=== PATIENT | female | born 1985 | race Two or more races ===

== ENCOUNTER 2018-10-02 14:01 | Emergency (ER) | payer SELFPAY ==
[~2018-10-02] VITALS: Ht 152.4 cm; Wt 56.7 kg
[2018-10-02 14:10] VITALS: BP 125/81
[2018-10-02] MEDS ORDERED: ACETAMINOPHEN ES 500 MG TABLET PO ONE (14:30)
[2018-10-02] MEDS ORDERED: TDAP [DIPH/PERTUSSIS/TET] 0.5 ML VIAL IM ONE (14:30)
[2018-10-02] MEDS ORDERED: ACETAMINOPHEN ES 500 MG TABLET ONE (14:35)
--- NOTE | 2018-10-02 15:06 | NUR ---
Patient discharged to home in stable condition. Written and verbal after care instructions given. Patient verbalizes understanding of instruction.
== END 2018-10-02 15:07 | disposition home or self-care (01) ==
LOC: ER 14:03
DX: S61.211A Laceration without foreign body of left index finger without damage to nail, initial encounter (principal); I10 Essential (primary) hypertension; W26.8XXA Contact with other sharp object(s), not elsewhere classified, initial encounter; Y93.89 Activity, other specified; Y92.89 Other specified places as the place of occurrence of the external cause; Y99.8 Other external cause status
CPT/HCPCS: 12001; 90471; 90715; 99283; A6402